=== PATIENT | male | born 1995 | race Hispanic/Latino ===

== ENCOUNTER 2019-03-23 16:42 | Emergency (ER) | payer OTHER ==
[~2019-03-23] VITALS: Ht 165.1 cm; Wt 96.3 kg
[2019-03-23] MEDS ORDERED: ONDANSETRON 4MG/2ML VIAL (J2405) IV ONE (17:45)
[2019-03-23] MEDS ORDERED: KETOROLAC 30 MG/ML VIAL (J1885) IV ONE (17:45)
[2019-03-23] MEDS ORDERED: NS 1,000 ML IV ONE (17:45)
[2019-03-23] MEDS ORDERED: methylPREDNISolone INJ 125 MG/2 ML VIAL (J2930) IV ONE (17:45)
[2019-03-23] MEDS: IPRATROPIUM 0.5MG/ALBUTEROL 2.5MG INH SOL UD 3ML (DUONEB)(J7620) NEB PRN ×2 (17:50→17:57)
[2019-03-23 18:04] LABS: BASO # 0.1 10^3/uL (0.0-0.2); BASO % 0.5 % (0.0-1.0); EOS # 0.5 10^3/uL (0.0-0.5); EOS % 4.7 % (0.0-3.0); HEMATOCRIT 46.8 % (42.0-52.0); HEMOGLOBIN 15.8 g/dl (13.5-17.5); LYMPH # 1.2 10^3/uL (1.5-5.0); LYMPH % 11.3 % (24.0-44.0); MEAN CORPUSCULAR HGB CONC 33.8 g/dl (32.0-36.5); MEAN CORPUSCULAR VOLUME 85.9 fl (80.0-96.0); MONO # 0.9 10^3/uL (0.0-0.8); MONO % 8.2 % (0.0-5.0); NEUTROPHILS # 7.8 10^3/uL (1.5-8.5); NEUTROPHILS % 74.7 % (36.0-66.0); PLATELET COUNT, AUTOMATED 147 10^3/uL (150-450); RED BLOOD COUNT 5.45 10^6/uL (4.30-6.10); WHITE BLOOD COUNT 10.5 10^3/uL (4.0-10.0)
[2019-03-23 18:27] LABS: INFLUENZA A AMPLIFICATION NEGATIVE (NEGATIVE); INFLUENZA B AMPLIFICATION NEGATIVE (NEGATIVE)
[2019-03-23 18:32] LABS: BLOOD UREA NITROGEN 16 MG/DL (7-18); CALCIUM LEVEL 9.3 MG/DL (8.5-10.1); CARBON DIOXIDE LEVEL 28 MEQ/L (21-32); CHLORIDE LEVEL 103 MEQ/L (98-107); CK-MB VALUE MASS 2.6 NG/ML (<3.6); CPK CREATINE PHOSPHOKINASE 375 U/L (39-308); CREATININE FOR GFR 0.95 MG/DL (0.70-1.30); GLOMERULAR FILTRATION RATE > 60.0 (>60); GLUCOSE, FASTING 94 MG/DL (70-100); MB/CK RELATIVE INDEX 0.69 (< OR =4); POTASSIUM SERUM 4.1 MEQ/L (3.5-5.1); SODIUM LEVEL 137 MEQ/L (136-145); TROPONIN I < 0.02 NG/ML (< 0.10)
--- NOTE | 2019-03-23 19:20 | REP ---
Chest x-ray: Two views. History: Dyspnea and cough. Findings: The lungs are symmetrically aerated and clear. The pleural angles are sharp. Heart size is normal. Pulmonary vasculature is not increased. No significant bony abnormality. Impression: No active disease. Electronically Signed by Abhinav Iniguez MD 03/23/2019 07:36 P
[2019-03-23] MEDS ORDERED: TESS100C PO (19:27)
[2019-03-23] MEDS ORDERED: PROAAER10 INH (19:27)
[2019-03-23] MEDS ORDERED: NAPR-837 PO (19:27)
[2019-03-23] MEDS ORDERED: PRED20TA PO (19:27)
[2019-03-23 19:39] VITALS: BP 176/84
--- NOTE | 2019-03-24 00:53 | ECGEPIP ---
[facility] - ED Test Date: 2019-03-23 Pat Name: MARY BENJAMIN Department: Room: - Gender: Male Manager Of Clinical: CT : 1995 Requested By: Tien Monroy Order Number: [id number] Reading MD: Srinivas Hernandez Measurements Intervals Van Rate: 85 P: 43 VT: 177 QRS: 57 QRSD: 98 T: 25 QT: 347 QTc: 413 Interpretive Statements SINUS RHYTHM ST ELEVATION, PROBABLY EARLY REPOLARIZATION Comparison tracing not on file Electronically Signed on 03-24-2019 0:53:20 EDT by Srinivas Hernandez
== END 2019-03-23 19:38 | disposition home or self-care (01) ==
LOC: M ED 16:42
DX: R09.1 Pleurisy (principal); J06.9 Acute upper respiratory infection, unspecified; R07.89 Other chest pain; R06.00 Dyspnea, unspecified
CPT/HCPCS: 71046; 80048; 82550; 82553; 84484; 85025; 85379; 87502; 93005; 94640; 94760; 96374; 96375; 99284; J1885; J2405; J2930